=== PATIENT | male | born 1950 | race Caucasian/White ===

== ENCOUNTER 2016-11-21 17:45 | Emergency (ER) | payer OTHER ==
[~2016-11-21] VITALS: Ht 177.8 cm; Wt 68.2 kg
[~2016-11-21 17:45] MED LIST: NO ACTIVE MEDS
[2016-11-21 17:52] VITALS: BP 200/88; PULSE 82; RESP 16; O2SAT 97
[2016-11-21] MEDS ORDERED: Fluorescein 0.6 mg Ophthalmic Strip RIGHT_EYE ONE (18:05)
[2016-11-21] MEDS ORDERED: Tetracaine 0.5% 4 mL Ophthalmic Solution RIGHT_EYE ONE (18:05)
[2016-11-21] MEDS ORDERED: 0.9% Sodium Chloride Inhalation Solution RIGHT_EYE ONE (18:05)
--- NOTE | 2016-11-21 18:07 | ED.REPORT ---
HPI-Eye Problem Date of Service Nov 21, 2016 ED Provider: Abad Barahona MD A 66 year old male presents to the ED complaining of right eye pain that began at 1300. Patient reports that he was walking near a heath when a foreign body blew into the right corner of his eye. Patient also reports blurred vision and tearing in the right eye. He believes a the foreign body was a twig. Patient currently wears glasses. He denies any previous eye injury. Nursing Notes Stated Complaint: FOREIGN OBJECT IN R/EYE Chief Complaint: Eye Nursing Notes Reviewed: Yes ([employer], meds not reconciled) Allergies: Coded Allergies: Sulfa (Sulfonamide Antibiotics) (Unverified Allergy, Unknown, unknown, 11/21) Miscellaneous Medications ([No Active Meds]) General Time Seen by MD: 18:05 Chief Complaint Right eye affected Hx Obtained From: Patient Arrived By: Walk-in Sudden in Onset?: Yes Onset Occurred: 5 - 8 hours ago Symptom Duration: Since onset Progression Since Onset: Unchanged Caused by: Foreign body in eye Location: : Eye right Quality: Painful Radiation: Does not radiate Severity: Current: Mild Severity: Maximum: Moderate Associated with: Reports: Blurred vision, Eye tearing Pertinent Negative: Pt denies other symptoms Recent Healthcare: No recent doctor visit, No recent hospitalization Past Medical History Past Medical History None reported Past Surgical History Vasectomy Reports: Inguinal hernia repair, Tonsillectomy Smoking History Never Smoker Social History Alcohol Use: "Social" Drug Use: THC Other Social History: Good social support, Local resident Ambulatory Status Independent Review of Systems Tearing in the right eye Constitutional: Denies: Chills, Fever Eyes: Reports: Blurred right, Eye pain right Neurologic: Denies: Change LOC Complete sys rev & neg: except as marked. Respiratory: Denies: Shortness of breath Cardiovascular: Denies: Chest pain GI: Denies: Abdominal pain, Nausea, Vomiting Physical Exam Initial Vital Signs Vital Signs (First) Date Time Temp Pulse Resp B/P Pulse Ox O2 Delivery O2 Flow Rate FiO2 11/21/16 17:52 36.3 82 16 200/88 97 Room Air Initial VS: Reviewed, Vital signs abnormal (HTN) Neck: Supple, Non-tender, Full range of motion Extremities: Vascular intact, Neuro intact, No swelling, No tenderness Skin: Warm, Dry, No cyanosis Neurologic: Alert, Oriented, Nonfocal Psychiatric: Mood/affect normal, Behavior normal, Normal thought content Head / Eyes: Atraumatic, Normocephalic Eyelids: Negative: FB under lid L, FB under lid R HEAD/EYES: Sizable corneal abrasion over iris No hyphema No evidence of foreign body Lid diversion normal Negative West General/Constitutional: Awake, No acute distress Procedures Slit Lamp Exam alkaline and fluorescein Time: 18:19 Procedure Performed by: ED physician Which Eye: Right Eyelid / Conjunctiva / Sclera: Eyelid(s) normal, Sclera normal Cornea/Ant Chamber/Iris/Lens: Corneal abrasion Re-Eval/Medical Decision Med Decision/Clinical Course This is a 66-year-old generally healthy male who has borderline hypertension but is not on any medications presents with an eye injury. He does not wear contacts, but does have glasses, was walking when a tree branch caught him in the right eye a few hours ago. Since then he has developed some increased discomfort. It is about a retained foreign body disease similar discomfort with a foreign body in the past years ago. As his eyes tearing up and it is uncomfortable. He has no photophobia. He has no other major medicalcomplaints , does not take any medications. On exam he does have a sizable corneal abrasion about 3 mm x 4 mm over the iris of the right eye, however there is no visible retained foreign material, and no hyphema. The patient complete relief of symptoms with topical anesthetic. Lid eversion was negative, and I was irrigated history of vegetative matter involvement. Given the involvement of vegetative materials, Cipro drops were initiated. The patient's being discharged in much improved condition. He was fairly hypertensive on arrival,'s blood pressure was still hypertensive although less so on recheck. He is advised to have his blood pressure rechecked again outside of the vertebra, and a follow-up with primary care physician. Long discussion was also held regarding options for pain management for the first few days, in the end the patient was given some of the topical anesthetic use at home on a when necessary basis- given current practice models indicate this is now acceptable. Her full instructions were reviewed, as the people of developed complex infections or severe eye problems in the literature from topical anesthetics used them on a prolonged basis. Patient is discharged in much improved condition. Routine precautions reviewed. Referral to ophthalmology provided. Source of Hx: Old records Re-Evaluation/Progress #1: Time of Eval: 18:20 Patient Status: Condition improved Re-Evaluation/Progress Note: Slit lamp exam performed. Patient toelrates well. He is informed of his results. All questions are addressed. He understands and agrees with the treatment plan. Re-Evaluation/Progress #2: Time of Eval: 18:37 Patient Status: Condition improved Re-Evaluation/Progress Note: Met with pharmacy rechecked blood pressure and patient is clear for discharge. Differential Diagnosis: Positive: Corneal abrasion, Negative: Corneal laceration, Corneal ulceration, Endophthalmitis, Foreign body, conjunctiva, Foreign body, corneal, Foreign body, intraocular, Foreign body, lid, Globe rupture, Hordeolum (sty), Hyphema, Lens dislocation, Lens subluxation, Orbital cellulitis Counseled Regarding: Diagnosis, Need for follow-up, When/why to return to ED Discharge & Departure Primary Impression: Corneal abrasion Encounter type: initial encounter Laterality: right Qualified Code: S05.01XA - Injury of conjunctiva and corneal abrasion without foreign body, right eye, initial encounter Additional Impression: HTN (hypertension) Hypertension type: unspecified secondary hypertension Hypertension goal: unspecified goal Qualified Code: I15.9 - Secondary hypertension, unspecified Disposition: Home Discharge Condition All VS Reviewed: Yes Condition: Stable Patient Instructions: Corneal Abrasion (ED) Additional Instructions: 1. You have a corneal abrasion on the Right Eye. No retained foreign body was appreciated on slit lamp exam of the eye. 2. Although very painful initially, this is expected to heal rapidly over the next several days. 3. It is important to put eye antibiotic drops in. Apply 1-2 drops of ciprofloxacin in right eye two more times tonight, and 5 times tomorrow, then 3- 4 times a day for the three days after that. 4. As discussed you can use the numbing eye drops if needed for pain for 1-2 days, but you should not need it for more than that. As discussed, you must be careful with its use. 5. If not clearly improved (or if any worsening) after 2 days, you need to be seen and rechecked by an opthomologist. Call [facility] for an appointment. 6. Take ibuprofen 400-800mg three times a day for pain as well. 7. Your blood pressure was high here in the ED and you should have it rechecked away from the ED. If still elevated, then follow up with your primary care provider. Referrals: Marco Yuan MD (PCP) [facility] Katelynibivanna Attestation Portions of this note were transcribed by Kailee Durán. I, Dr. Barahona personally performed the history, physical exam and medical decision-making; I reviewed and confirmed the accuracy of the information in the transcribed note. Signed by: Jennifer Valentin, 11/21/16 1850. copies to: Marco Yuan MD, Matthew F MD Nov 21, 2016 18:07 KAILEE DURÁN Nov 21, 2016 18:27
[2016-11-21] MEDS ORDERED: Ciprofloxacin 0.3% 5 mL Ophthalmic Solution RIGHT_EYE ONE (18:30)
[2016-11-21 18:46] VITALS: BP 177/88; PULSE 76; RESP 16; O2SAT 95
[2016-11-21 19:06] VITALS: BP 177/88; PULSE 76; RESP 16; O2SAT 95
== END 2016-11-21 18:57 | disposition home or self-care (01) ==
LOC: SED 17:45
DX: S05.01XA Injury of conjunctiva and corneal abrasion without foreign body, right eye, initial encounter (principal); W22.8XXA Striking against or struck by other objects, initial encounter; Y93.01 Activity, walking, marching and hiking; Y92.89 Other specified places as the place of occurrence of the external cause; Y99.8 Other external cause status; I15.9 Secondary hypertension, unspecified; Z88.2 Allergy status to sulfonamides